=== PATIENT | male | born 1990 | race Caucasian/White ===

== ENCOUNTER 2019-03-13 16:05 | Emergency (ER) | payer OTHER ==
[~2019-03-13] VITALS: Ht 175.3 cm; Wt 85.0 kg
[~2019-03-13 16:05] MED LIST: BUSP15TA3 PO; CHLO25CA9 PO; CITA20TA8 PO; GABA-528 PO; PROP10TA6 PO
[2019-03-13 16:09] VITALS: Ht 175.3 cm; Wt 85.0 kg
[2019-03-13] MEDS ORDERED: DIAZEPAM 5 MG TAB PO ONE (19:00)
[2019-03-13] MEDS ORDERED: CHLORDIAZEPOXIDE 25 MG CAP PO ONE (19:00)
[2019-03-14] MEDS ORDERED: LORAZEPAM 1 MG TAB PO ONE (06:00)
[2019-03-14 11:00] VITALS: BP 139/66; PULSE 82; RESP 18
== END 2019-03-14 12:44 ==
LOC: E/R 16:05
DX: F10.920 Alcohol use, unspecified with intoxication, uncomplicated (principal); R40.2142 Coma scale, eyes open, spontaneous, at arrival to emergency department; R40.2252 Coma scale, best verbal response, oriented, at arrival to emergency department; R40.2362 Coma scale, best motor response, obeys commands, at arrival to emergency department; F17.210 Nicotine dependence, cigarettes, uncomplicated
CPT/HCPCS: 36415; 80053; 80307; 85025; Z7502; Z7610; 99285

== ENCOUNTER 2019-03-14 13:47 | Emergency (ER) | payer OTHER ==
[~2019-03-14] VITALS: Ht 172.7 cm; Wt 84.1 kg
[2019-03-14 13:47] VITALS: Ht 172.7 cm; Wt 84.1 kg
[2019-03-14] MEDS ORDERED: THIAMINE 100 MG TAB PO STA (13:49)
[2019-03-14] MEDS ORDERED: LORAZEPAM 2 MG INJ IV STA (13:49)
[2019-03-14] MEDS ORDERED: SOD CHLORIDE 0.9% 1,000 ML IV STA (13:49)
[2019-03-14] MEDS ORDERED: FOLIC ACID 1 MG TAB PO ONE (14:00)
[2019-03-14] MEDS ORDERED: CHLORDIAZEPOXIDE 25 MG CAP PO ONE (14:00)
[2019-03-14] MEDS ORDERED: LORAZEPAM 2 MG INJ IV ONE (15:30)
[2019-03-14 15:53] VITALS: BP 137/86; PULSE 80; RESP 16
== END 2019-03-14 16:12 | disposition home or self-care (01) ==
LOC: E/R 13:47
DX: F10.230 Alcohol dependence with withdrawal, uncomplicated (principal); Z87.891 Personal history of nicotine dependence
CPT/HCPCS: 96374; 96376; J2060; J7030; Z7502; Z7610

== ENCOUNTER 2019-03-15 20:29 | Emergency (ER) | payer OTHER ==
[~2019-03-15] VITALS: Ht 172.7 cm; Wt 81.9 kg
[2019-03-15 20:59] VITALS: Ht 172.7 cm; Wt 81.9 kg
[2019-03-15 21:26] VITALS: BP 140/81; PULSE 79; RESP 19
== END 2019-03-15 21:32 | disposition home or self-care (01) ==
LOC: E/R 20:29
DX: F10.920 Alcohol use, unspecified with intoxication, uncomplicated (principal); F17.210 Nicotine dependence, cigarettes, uncomplicated
CPT/HCPCS: 99282